=== PATIENT | female | born 1985 | race Caucasian/White ===

== ENCOUNTER 2020-03-03 20:10 | Emergency (ER) | payer BC ==
[~2020-03-03] VITALS: Ht 160 cm; Wt 61.7 kg
[2020-03-03] MEDS ORDERED: BIRTH CONTROL (20:19)
--- NOTE | 2020-03-03 20:25 | NUR ---
Dr. Ku at bedside for MSE.
[2020-03-03] MEDS ORDERED: NEOMY/BACITRA/POLYMYXIN B OINT UD PACKET TP ONE (20:35)
[2020-03-03] MEDS: NEOMY/BACITRA/POLYMYXIN B OINT UD PACKET TP ONE (20:38)
[2020-03-03] MEDS ORDERED: HYDROCODONE/APAP 10-325 MG TABLET ONE (20:43)
[2020-03-03] MEDS: HYDROCODONE/APAP 10-325 MG TABLET PO ONE (20:46)
--- NOTE | 2020-03-03 20:46 | NUR ---
Patient discharged to home in stable condition. Written and verbal after care instructions given. Patient verbalizes understanding of instructions. Stressed follow up or return to ER for worsening s/s. Patient ambulated out of ER with steady gait, no acute signs of distress, VSS, all belongings taken, to be driven home by via private vehicle.
[2020-03-03 20:47] VITALS: BP 138/86
== END 2020-03-03 21:23 | disposition home or self-care (01) ==
LOC: ER 20:15
DX: T23.242A Burn of second degree of multiple left fingers (nail), including thumb, initial encounter (principal); T31.0 Burns involving less than 10% of body surface; X19.XXXA Contact with other heat and hot substances, initial encounter; Y92.89 Other specified places as the place of occurrence of the external cause
CPT/HCPCS: A4663